=== PATIENT | female | born 1950 | race Asian ===

== ENCOUNTER 2016-08-30 08:18 | Emergency (ER) | payer OTHER ==
[~2016-08-30] VITALS: Ht 160 cm; Wt 84.4 kg
[~2016-08-30 08:18] MED LIST: ALAVERT10 M2 PO; ATEN50TA36 PO; CELEBREX200 MG PO; COLCRYS 0.6MG0.6 MG PO; HYDR-3182 PO; LISI20TA11 PO; LOFIBRA54 MG PO; PARO20TA3 PO; PHENTERMINE37.5 MG PO; RANITIDINE 150150 MG PO; SIMV40TA57 PO; TERAZOSIN1 MG PO; TRAM50TA PO
[2016-08-30 08:59] LABS: PLATELET COUNT 448 K/uL (152-353)
[2016-08-30 09:10] LABS: POTASSIUM 3.9 mmol/L (3.6-5.2)
[2016-08-30 10:21] VITALS: BP 128/87; TEMP 98.6
== END 2016-08-30 10:33 | disposition home or self-care (01) ==
LOC: ED 08:18
DX: I10 Essential (primary) hypertension (principal); K21.9 Gastro-esophageal reflux disease without esophagitis
CPT/HCPCS: 36415; 80053; 81000; 85027; 87081; 87804; 87880; 99283

== ENCOUNTER 2016-11-30 13:44 | Outpatient (CLI) | payer OTHER | END 2016-11-30 15:00 | disposition home or self-care (01) | LOC: RAD 13:44 | DX: M17.12 Unilateral primary osteoarthritis, left knee (principal) ==

== ENCOUNTER 2017-03-18 10:40 | Outpatient (CLI) | payer OTHER | END 2017-03-18 11:45 | disposition home or self-care (01) | LOC: RAD 10:40 | DX: Z01.818 Encounter for other preprocedural examination (principal) ==

== ENCOUNTER 2017-04-01 14:02 | Outpatient (CLI) | payer OTHER | END 2017-04-01 21:58 | disposition home or self-care (01) | LOC: RAD 14:02 | DX: M81.0 Age-related osteoporosis without current pathological fracture (principal) ==

== ENCOUNTER 2017-05-07 10:30 | Outpatient (CLI) | payer OTHER | END 2017-05-07 21:34 | disposition home or self-care (01) | LOC: MAMMO 10:30 | DX: Z12.31 Encounter for screening mammogram for malignant neoplasm of breast (principal) ==

== ENCOUNTER 2017-09-07 11:32 | Observation (INO) | payer OTHER ==
[~2017-09-07] VITALS: Ht 160 cm; Wt 86.4 kg
[2017-09-07 11:40] VITALS: BP 118/87; TEMP 98.4
[2017-09-07 12:21] LABS: PLATELET COUNT 477 K/uL (152-353)
[2017-09-07 12:26] LABS: POTASSIUM 4.4 mmol/L (3.6-5.2)
[2017-09-07 13:40] VITALS: BP 128/80
[2017-09-07 15:45] VITALS: BP 133/71
[2017-09-07 17:05] VITALS: BP 148/72
[2017-09-07 20:22] VITALS: BP 146/83; TEMP 97.7
[2017-09-07 22:07] VITALS: BP 120/75; TEMP 98.2; Ht 160 cm; Wt 86.4 kg
--- NOTE | 2017-09-08 00:39 | NUR ---
09/03/17 2350: PT'S HEART RATE UP TO 105-107, PT STATES IT FEELS LIKE HER HEART IS RUNNING AWAY. PT STATED THAT SHE TAKES ATENOLOL BUT DID NOT TAKE IT TODAY. DR. WOOTEN NOTIFIED OF SAME AND RECEIVED ORDERS TO CONTINUE HER ATENOLOL IF BP IS OK, AND TO PLACE TELEMETRY ON HER. BP WAS 135/91 HR 98, O2 SAT 98% RESP 20, AND TEMP 98.2.
--- NOTE | 2017-09-08 00:44 | NUR ---
09/08/17 0010: PT WANTED TO KNOW IF SHE HAD ANY PAIN MED ORDERED. EMAR AND ORDERS CHECKED AND NO PAIN MED HAD BEEN ORDERED. DR WOOTEN NOTIFIED AND ORDER WAS GIVEN FOR HYDROCODONE 7.5/325 MG PO Q 4 HRS PRN PAIN.
[2017-09-08 00:47] VITALS: BP 135/91; TEMP 98.2
[2017-09-08 04:00] VITALS: BP 115/76; TEMP 99
[2017-09-08 05:14] LABS: PLATELET COUNT 462 K/uL (152-353)
[2017-09-08 07:05] LABS: SODIUM 131 mmol/L (136-145)
[2017-09-08 08:00] VITALS: BP 127/71; TEMP 98
[2017-09-08 12:00] VITALS: BP 117/67; TEMP 97.8
[2017-09-08] MEDS ORDERED: TRAM50TA PO (12:57)
[2017-09-08] MEDS ORDERED: PERCOCET1 TA1 PO (13:02)
[2017-09-08] MEDS ORDERED: ASPI325T40 PO (13:05)
[2017-09-08] MEDS ORDERED: VITAMIN D35000 UNIT OR (13:05)
[2017-09-08] MEDS ORDERED: FLUTICASONE50 MCG (13:07)
[2017-09-08] MEDS ORDERED: MICROZIDE12.5 MG OR (13:07)
[2017-09-08] MEDS ORDERED: ZESTRIL40 MG OR (13:10)
[2017-09-08] MEDS ORDERED: GABA400C2 PO (13:10)
[2017-09-08] MEDS ORDERED: AMLODIPINE BESYLATE PO (13:11)
[2017-09-08] MEDS ORDERED: CLON0.1T16 PO (13:12)
--- NOTE | 2017-09-08 15:40 | NUR ---
IV D/C. CANNULA INTACT. PT TOLERATED WELL.
== END 2017-09-08 15:50 | disposition home or self-care (01) ==
LOC: ED 11:32 → MED/SURG 15:45
PROVIDERS: Emergency Medicine; ADMIT Family Medicine
DX: R00.0 Tachycardia, unspecified (principal); I95.89 Other hypotension
CPT/HCPCS: 36415; 80053; 82550; 83605; 83880; 84484; 85027; 85379; 85651; 93005; 96365; 96366; 96375; 99220; 99284; G0378; J1885; Q9963

== ENCOUNTER 2018-08-05 11:25 | Outpatient (CLI) | payer OTHER, MEDICARE ==
[~2018-08-05 11:25] MED LIST changes: +AMLODIPINE BESYLATE PO; +ASPI325T40 PO; +CLON0.1T16 PO; +FLUTICASONE50 MCG; +GABA400C2 PO; +MICROZIDE12.5 MG OR; +PERCOCET1 TA1 PO; +VITAMIN D35000 UNIT OR; +ZESTRIL40 MG OR
== END 2018-08-05 19:01 | disposition home or self-care (01) ==
LOC: MAMMO 11:25
DX: Z12.31 Encounter for screening mammogram for malignant neoplasm of breast (principal)

== ENCOUNTER 2018-09-13 07:55 | Day surgery (SDC) | payer OTHER, MEDICARE ==
[2018-09-13 08:44] LABS: PLATELET COUNT 293 K/uL (152-353)
[2018-09-13 08:52] LABS: POTASSIUM 3.6 mmol/L (3.6-5.2)
== END 2018-09-13 10:50 | disposition home or self-care (01) ==
LOC: OR 07:55
PROVIDERS: Student in an Organized Health Care Education/Training Program
PROC: 0DJD8ZZ Inspection of Lower Intestinal Tract, Via Natural or Artificial Opening Endoscopic (ICD-10-PCS; principal; 2018-09-13)
DX: K64.0 First degree hemorrhoids (principal); K64.4 Residual hemorrhoidal skin tags; Z12.11 Encounter for screening for malignant neoplasm of colon; Z86.010 Personal history of colon polyps
CPT/HCPCS: 80053; 85027; J2001; J2250; J2405; J2704; J3490

== ENCOUNTER 2019-08-16 13:22 | Outpatient (CLI) | payer OTHER, MEDICARE | END 2019-08-16 22:31 | disposition home or self-care (01) | LOC: MRI 13:22 | DX: M47.812 Spondylosis without myelopathy or radiculopathy, cervical region (principal); M54.16 Radiculopathy, lumbar region ==

== ENCOUNTER 2020-01-02 08:27 | Day surgery (SDC) | payer OTHER, MEDICARE | END 2020-01-02 10:19 | disposition home or self-care (01) | LOC: OR 08:27 | PROC: 3E0R33Z Introduction of Anti-inflammatory into Spinal Canal, Percutaneous Approach (ICD-10-PCS; principal; 2020-01-02) | PROC: B01BYZZ Fluoroscopy of Spinal Cord using Other Contrast (ICD-10-PCS; 2020-01-02) | DX: M51.16 Intervertebral disc disorders with radiculopathy, lumbar region (principal) ==

== ENCOUNTER 2020-07-26 12:55 | Emergency (ER) | payer OTHER, MEDICARE ==
[~2020-07-26] VITALS: Ht 160 cm; Wt 86.2 kg
[2020-07-26 13:00] VITALS: BP 158/82; TEMP 98.9
[2020-07-26 13:30] LABS: PLATELET COUNT 310 K/uL (152-353)
[2020-07-26 13:42] LABS: POTASSIUM 4.2 mmol/L (3.6-5.2); SODIUM 142 mmol/L (136-145)
== END 2020-07-26 15:31 | disposition home or self-care (01) ==
LOC: ED 12:55
PROVIDERS: Family Medicine
DX: S20.219A Contusion of unspecified front wall of thorax, initial encounter (principal); S50.00XA Contusion of unspecified elbow, initial encounter; S80.01XA Contusion of right knee, initial encounter; V49.40XA Driver injured in collision with unspecified motor vehicles in traffic accident, initial encounter; Y92.89 Other specified places as the place of occurrence of the external cause
CPT/HCPCS: 80053; 81000; 84484; 85027; 93005; 99283

== ENCOUNTER 2020-08-05 13:29 | Emergency (ER) | payer OTHER, MEDICARE ==
[~2020-08-05] VITALS: Ht 160 cm; Wt 86.2 kg
[2020-08-05 13:33] VITALS: TEMP 97.6
[2020-08-05 13:55] LABS: PLATELET COUNT 369 K/uL (152-353)
[2020-08-05 14:16] LABS: POTASSIUM 4.1 mmol/L (3.6-5.2); SODIUM 142 mmol/L (136-145)
[2020-08-05 16:25] VITALS: BP 157/85
== END 2020-08-05 16:25 | disposition home or self-care (01) ==
LOC: ED 13:29
PROVIDERS: Emergency Medicine Emergency Medical Services
DX: S20.213A Contusion of bilateral front wall of thorax, initial encounter (principal); V43.52XA Car driver injured in collision with other type car in traffic accident, initial encounter; Y92.89 Other specified places as the place of occurrence of the external cause
CPT/HCPCS: 80053; 82550; 82553; 84484; 85027; 93005; 96374; 96375; 99284; J1170; J1885

== ENCOUNTER 2020-09-17 15:56 | Observation (INO) | payer OTHER, MEDICARE ==
[~2020-09-17] VITALS: Ht 160 cm; Wt 91.4 kg
[2020-09-17 17:33] VITALS: BP 135/95; TEMP 98.4; Ht 160 cm; Wt 91.4 kg
[2020-09-17 17:37] LABS: PLATELET COUNT 285 K/uL (152-353)
[2020-09-17 17:46] LABS: POTASSIUM 4.1 mmol/L (3.6-5.2); SODIUM 140 mmol/L (136-145)
--- NOTE | 2020-09-17 18:20 | NUR ---
U/S REQUESTED MED LIST TO BE FAXED FROM [facility].
--- NOTE | 2020-09-17 20:00 | NUR ---
ENTERED PATIENT'S ROOM AT THIS TIME. PATIENT RESTING QUIETLY IN BED WATCHING TV. 22G TO RIGHT FA SALINE LOCKED. NO ERYTHEMA OR SWELLING NOTED. RESPIRATIONS EVEN AND UNLABORED. REVIEWED PATIENT'S MEDICATIONS- PT NOT ABLE TO RECALL ALL OF HER MEDICATIONS. REQUESTING SOMETHING FOR PAIN. STATES SHE SEES DR. YI FOR PAIN MANAGEMENT. SHE HAS CHRONIC BACK AND LEG PAIN. SHE TAKE NORCO 5/325MG QID WHILE AT HOME. RATES PAIN 8/10 AT THIS TIME. I INFORMED THIS PATIENT THAT I WOULD TALK TO DR. WOOTEN ABOUT SOMETHING FOR PAIN. NO OTHER CONCERNS OR COMPLAINTS VOICED AT THIS TIME. BED LOCKED AND IN LOWEST POSITION. CALL LIGHT WITHIN EASY REACH.
--- NOTE | 2020-09-17 20:56 | NUR ---
CALLED DR. WOOTEN AT THIS TIME. INFORMED HER ABOUT PATIENT'S MEDICATIONS THAT SHE COULD RECALL. ORDERS GIVEN TO RESTART GABAPENTIN 600 TID, AMLODIPINE 10MG QHS. HYDROCODONE 5/325MG 1 TAB PO X ONCE TO BE GIVEN NOW FOR PAIN. NO FURTHER ORDERS GIVEN AT THIS TIME. [facility] CALLED DURING PREVIOUS SHIFT FOR AN UPDATED MED LIST- HAS NOT BEEN RECEIVED AT THIS TIME.
[2020-09-17] MEDS ORDERED: AMLODIPINE BESYLATE PO (20:57)
[2020-09-17] MEDS ORDERED: HYDR5TAB9 PO (21:01)
[2020-09-18 00:09] VITALS: BP 135/90; TEMP 98.4
--- NOTE | 2020-09-18 01:12 | NUR ---
I REPORTED TO DR WOOTEN THE PATIENT NEWEST EKG
--- NOTE | 2020-09-18 01:50 | NUR ---
CHARGE NURSE, MISTY DYE, SPOKE WITH DR. WOOTEN REGARDING PATIENT'S MOST RECENT EKG. TELEPHONE ORDERS GIVEN FOR: CARDIAZEM 60MG 1 TAB PO Q12H, LOVENOX (WEIGHT BASED DOSE) BID. ORDERS READ BACK AND VERIFIED. NO FURTHER ORDERS GIVEN AT THIS TIME.
--- NOTE | 2020-09-18 02:35 | NUR ---
IN TO GIVE PATIENT MEDICATION ORDERED BY DR. WOOTEN. PATIENT RESTING QUIETLY IN BED. EXPLAINED EACH MEDICATION AND PURPOSE. PATIENT VERBALIZED UNDERSTANDING. RESPIRATIONS EVEN AND UNLABORED. NAD NOTED. BED LOCKED AND IN LOWEST POSITION. CALL LIGHT WITHIN EASY REACH.
[2020-09-18 04:04] VITALS: BP 133/80; TEMP 98.5
[2020-09-18 05:24] LABS: PLATELET COUNT 306 K/uL (152-353)
[2020-09-18 05:49] LABS: POTASSIUM 3.8 mmol/L (3.6-5.2); SODIUM 141 mmol/L (136-145)
--- NOTE | 2020-09-18 05:55 | NUR ---
PATIENT REQUESTING SOMETHING ELSE FOR PAIN AT THIS TIME. CALLED DR. WOOTEN. ORDERS GIVEN FOR: TORADOL 15MG IV X ONE TIME DOSE. ORDER READ BACK AND VERIFIED. NO FURTHER ORDERS GIVEN.
--- NOTE | 2020-09-18 06:01 | NUR ---
PATIENT RESTING QUIETLY IN BED. TORADOL 15MG GIVEN IV PER MD ORDERS. 22G TO RT FA FLUSHED. NO ERYTHEMA OR SWELLING NOTED. BED LOCKED AND IN LOWEST POSITION. CALL LIGHT WITHIN EASY REACH.
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
[2020-09-18 08:00] VITALS: BP 130/84; TEMP 98.1
[2020-09-18 12:00] VITALS: BP 131/94; TEMP 98.1
--- NOTE | 2020-09-18 12:35 | NUR ---
Dr Guzman called and ordered a one time dose of cardizem cd, 120mg, to be given now, to monitor how patient tolerates it. Will continue to monitor.
--- NOTE | 2020-09-18 15:00 | NUR ---
Dr Guzman ordered for one time dose of cardizem cd, 120 mg, po to be given in addition to the dose of cardizem, 60mg, po that patient had in morning meds. Dr Guzman wanted patient's heartrate to be monitored after taking new med of cardizem cd, 120mg, po, before she is discharged home on it. Patient's hr was checked before giving new med and found to 54-60. Dr Guzman was notified of this before giving med, and she instructed for the patient to get up and ambulate around room. Patient was instructed of this and complied. Hr was rechecked and found to be in the low 70's. Med was given and patient was monitored closely, and is being monitored on tele at the nurses station. Patient denied any acute distress or discomfort. Call light is within reach.
--- NOTE | 2020-09-18 16:21 | NUR ---
Called in scripts for cardizem cd, 120 mg, po, and eliquis, 5 mg, bid, po to [facility] [place].
--- NOTE | 2020-09-18 18:00 | NUR ---
Pt discharged to home and transferred to personal vehicle, and driven by daughter. Follow up appt. with Dr Guzman was made and info given to patient and her daughter. New med changes were explained also, and pt was informed of prescriptions were called into [facility] in [place] and would need to be picked up. It was explained that Dr Lopes's office would mail patient the haulter cardiac cath lab manager, to wear for two weeks, and then pt is to call Dr Guzman's office to schedule sleep study. Pt and daughter stated understanding. No acute distress upon discharge.
== END 2020-09-18 18:00 | disposition home or self-care (01) ==
LOC: MED/SURG 15:56
PROVIDERS: ADMIT Family Medicine; ATTEND Family Medicine
DX: I48.91 Unspecified atrial fibrillation (principal); Z01.818 Encounter for other preprocedural examination; I10 Essential (primary) hypertension
CPT/HCPCS: 36415; 80053; 82550; 82553; 83735; 83874; 84100; 84439; 84443; 84481; 84484; 85027; 86376; 87040; 87635; 93005; 96360; 96372; 96374; 99220; G0378; G0379; J1650; J1885; U0003

== ENCOUNTER 2020-10-06 10:35 | Emergency (ER) | payer OTHER, MEDICARE ==
[~2020-10-06] VITALS: Ht 160 cm; Wt 91.2 kg
[~2020-10-06 10:35] MED LIST changes: +HYDR5TAB9 PO
[2020-10-06 10:45] VITALS: TEMP 97.7
[2020-10-06 11:36] LABS: PLATELET COUNT 332 K/uL (152-353)
[2020-10-06 12:07] LABS: POTASSIUM 3.8 mmol/L (3.6-5.2); SODIUM 138 mmol/L (136-145)
[2020-10-06 12:22] LABS: PARTIAL THROMBOPLASTIN TIME 29.6 SECONDS (24.5-33.6)
[2020-10-06 13:32] VITALS: BP 154/82
== END 2020-10-06 13:33 | disposition home or self-care (01) ==
LOC: ED 10:35
PROVIDERS: Hospitalist
DX: M10.9 Gout, unspecified (principal); M19.042 Primary osteoarthritis, left hand; M18.9 Osteoarthritis of first carpometacarpal joint, unspecified
CPT/HCPCS: 80053; 82550; 83880; 84484; 84550; 85027; 85610; 85730; 93005; 96374; 96375; 99284; J1885; J2930

== ENCOUNTER 2020-12-16 15:13 | Outpatient (CLI) | payer OTHER ==
[2020-12-16 15:50] LABS: POTASSIUM 4.3 mmol/L (3.6-5.2)
== END 2020-12-16 21:52 | disposition home or self-care (01) ==
LOC: RAD 15:13
PROVIDERS: ATTEND Nurse Practitioner Family
DX: R10.32 Left lower quadrant pain (principal)
CPT/HCPCS: 36415; 80053; Q9963

== ENCOUNTER 2020-12-27 14:34 | Outpatient (CLI) | payer OTHER | END 2020-12-27 23:59 | disposition home or self-care (01) | LOC: CT 14:34 | PROVIDERS: ATTEND Nurse Practitioner Family | DX: R91.1 Solitary pulmonary nodule (principal) ==

== ENCOUNTER 2021-01-16 11:28 | Outpatient (CLI) | payer OTHER | END 2021-01-16 19:47 | disposition home or self-care (01) | LOC: MAMMO 11:28 | PROVIDERS: ATTEND Family Medicine | DX: Z12.31 Encounter for screening mammogram for malignant neoplasm of breast (principal) ==

== ENCOUNTER 2021-05-01 09:06 | Outpatient (CLI) | payer OTHER ==
[~2021-05-01] VITALS: Ht 160 cm; Wt 90.7 kg
== END 2021-05-01 18:53 | disposition home or self-care (01) ==
LOC: INF 09:06
PROVIDERS: ATTEND Family Medicine
DX: Z23 Encounter for immunization (principal); U07.1 COVID-19
CPT/HCPCS: 96365; M0244

== ENCOUNTER 2022-01-22 10:40 | Outpatient (CLI) | payer OTHER | END 2022-01-22 19:06 | disposition home or self-care (01) | LOC: MAMMO 10:40 | PROVIDERS: ATTEND Family Medicine | DX: Z12.31 Encounter for screening mammogram for malignant neoplasm of breast (principal) ==

== ENCOUNTER 2022-03-30 17:21 | Emergency (ER) | payer OTHER ==
[~2022-03-30] VITALS: Ht 160 cm; Wt 89.8 kg
[2022-03-30 19:18] LABS: PLATELET COUNT 323 K/uL (152-353)
[2022-03-30 19:26] LABS: POTASSIUM 3.4 mmol/L (3.6-5.2)
[2022-03-30 23:20] VITALS: BP 147/90; TEMP 97.6
== END 2022-03-30 23:20 | disposition home or self-care (01) ==
LOC: ED 17:21
PROVIDERS: Emergency Medicine Emergency Medical Services
DX: I10 Essential (primary) hypertension (principal)
CPT/HCPCS: 36415; 80048; 83735; 84484; 85027; 93005; 96360; 96361; 96374; 96375; 99284; J0360

== ENCOUNTER 2022-06-16 08:58 | Outpatient (CLI) | payer OTHER ==
[~2022-06-16] VITALS: Ht 160 cm; Wt 86.2 kg
== END 2022-06-16 19:35 | disposition home or self-care (01) ==
LOC: NM 08:58
PROVIDERS: ATTEND Specialist
DX: I10 Essential (primary) hypertension (principal); Z79.899 Other long term (current) drug therapy
CPT/HCPCS: A9500; J2785

== ENCOUNTER 2022-08-02 21:34 | Emergency (ER) | payer OTHER ==
[~2022-08-02] VITALS: Ht 160 cm; Wt 81.2 kg
[2022-08-02 21:34] VITALS: TEMP 98.3
[2022-08-02 22:16] LABS: POTASSIUM 3.3 mmol/L (3.6-5.2)
[2022-08-02 22:55] VITALS: BP 154/82
== END 2022-08-02 22:55 | disposition home or self-care (01) ==
LOC: ED 21:34
PROVIDERS: Internal Medicine
DX: R00.1 Bradycardia, unspecified (principal)
CPT/HCPCS: 36415; 80048; 84484; 93005; 99283

== ENCOUNTER 2022-08-20 10:03 | Outpatient (CLI) | payer OTHER ==
[2022-08-20 10:46] LABS: PLATELET COUNT 339 K/uL (152-353)
== END 2022-08-20 20:40 | disposition home or self-care (01) ==
LOC: LABW 10:03
PROVIDERS: ATTEND Specialist
DX: R00.2 Palpitations (principal)
CPT/HCPCS: 36415; 80048; 85027

== ENCOUNTER 2022-12-03 09:22 | Outpatient (CLI) | payer OTHER | END 2022-12-03 17:00 | LOC: LABW 09:22 | PROVIDERS: ATTEND Nurse Practitioner | DX: I25.10 Atherosclerotic heart disease of native coronary artery without angina pectoris (principal) | CPT/HCPCS: 36415; 80061; 80076 ==

== ENCOUNTER 2023-02-10 11:46 | Outpatient (CLI) | payer OTHER | END 2023-02-10 19:07 | disposition home or self-care (01) | LOC: MAMMO 11:46 | PROVIDERS: ATTEND Family Medicine | DX: Z12.31 Encounter for screening mammogram for malignant neoplasm of breast (principal) ==